=== PATIENT | female | born 1995 | race Caucasian/White ===

== ENCOUNTER 2023-05-01 12:50 | Emergency (ER) | payer OTHER, SELFPAY ==
[2023-05-01 12:55] VITALS: BP 134/86; PULSE 88; RESP 16; TEMP 36.6; O2SAT 100
[2023-05-01 14:54] LABS: Basophils Absolute Auto 0.1 K/mm3 (0.0-0.1); Basophils Percent Auto 0.8 % (0.2-1.2); Eosinophils Absolute Auto 0.3 K/mm3 (0-0.3); Eosinophils Percent Auto 4.5 % (0-4.4); Hematocrit 42.3 % (37.0-47.0); Hemoglobin 14.3 g/dL (12.0-15.0); Immature Granulocyte Absolute 0.01 K/mm3 (0.00-0.031); Immature Granulocyte Percent A 0.2 % (0-0.5); Lymphocytes Absolute Auto 2.01 K/mm3 (0.9-3.2); Lymphocytes Percent Auto 33.3 % (18.3-44.2); Mean Corpuscular HGB Conc 33.8 g/dl (32-36); Mean Corpuscular Hemoglobin 31.5 pg (26-34); Mean Corpuscular Volume 93.2 fl (80-100); Mean Platelet Volume 9.4 fl (7.4-10.4); Monocytes Absolute Auto 0.6 K/mm3 (0.1-0.6); Monocytes Percent Auto 9.5 % (2.6-8.5); Neutrophils Absolute Auto 3.1 K/mm3 (1.3-6.7); Neutrophils Percent Auto 51.7 % (45.5-73.1); Platelet Count Result 269 k/mm3 (150-375); Red Blood Count 4.54 M/mm3 (4.2-5.4); Red Cell Distribution Width 13.2 % (11.5-14.5)
--- NOTE | 2023-05-01 15:02 | ED.GENADULT ---
HPI - General Adult General Chief complaint: Unspecified Stated complaint: need work note Time Seen by Provider: 05/01/23 13:05 Source: patient Mode of arrival: ambulatory Limitations: no limitations History of Present Illness HPI narrative: Patient is a 27-year-old female who presents the ED for work clearance. Patient reports she ate [employer] yesterday afternoon and around 4 PM developed lower abdominal cramping, nausea, vomiting. She went to work last night, but reported having several more episodes of emesis at work. She was sent home from work and was told she needed a note to be cleared to return. She would like to be evaluated for the symptoms though reports today she is feeling much better. Has not had any further nausea, vomiting, abdominal pain today. Denies any sx's currently. She denies any diarrhea, constipation, fevers, rectal bleeding, cough or cold symptoms, vaginal bleeding, urinary symptoms, concern for STDs. Related Data Allergies Allergy/AdvReac Type Severity Reaction Status Date / Time No Known Allergies Allergy Unverified 05/20/16 21:35 Review of Systems Review of Systems: CONSTITUTIONAL: Denies fever, chills, or sweats. ENT: Denies rhinorrhea, congestion, sore throat. CARDIOVASCULAR: Denies chest pain. RESPIRATORY: Denies dyspnea. GASTROINTESTINAL: See HPI. GENITOURINARY: Denies vaginal bleeding, dysuria or hematuria. All systems reviewed & are unremarkable except as noted in HPI and below Exam Narrative: GENERAL: Well appearing, well-nourished, non-toxic, in no acute distress. HEAD: Normocephalic, atraumatic. NECK: Supple. No adenopathy, no masses. RESPIRATORY: Airway patent, respirations nonlabored. Clear to auscultation bilaterally, no rales, rhonchi, wheezing. CARDIOVASCULAR: Regular rate and rhythm without murmurs, rubs, or gallops. Radial pulses 2+ and equal bilaterally. ABDOMINAL: Soft, no tenderness throughout abdomen, nondistended, no hepatosplenomegaly. Normoactive BS. MUSCULOSKELETAL: Moves all extremities. Strength/ROM intact without gross deformities. SKIN: Warm, dry, normal color. No rashes. NEURO: A&O X3. Speech clear. Cranial nerves II-XII grossly intact. Steady gait. No ataxic movements. PSYCHIATRIC: Appropriate mood and affect. Normal interaction. Course Vital Signs Vital signs: Vital Signs Temperature 97.9 F 05/01/23 12:55 Pulse Rate 88 05/01/23 12:55 Respiratory Rate 16 05/01/23 12:55 Blood Pressure 134/86 05/01/23 12:55 Pulse Oximetry 100 05/01/23 12:55 Temperature 97.8 F 05/01/23 15:54 Pulse Rate 76 05/01/23 15:54 Respiratory Rate 16 05/01/23 15:54 Blood Pressure 118/68 05/01/23 15:54 Pulse Oximetry 98 05/01/23 15:54 Medical Decision Making MDM Narrative Medical decision making narrative: Patient presented to ED with report of numerous episodes of nausea and vomiting yesterday, lower abdominal cramping. Symptoms resolved today. Wanting to be evaluated and be cleared to return to work. Vitals stable upon arrival. Afebrile. Patient without any abdominal tenderness on exam. No evidence of surgical abdomen. CBC without leukocytosis. CMP with stable electrolytes. UA consistent with UTI states that esterase, 11-20 WBC, 3+ urine bacteria. Sent for culture. On reevaluation and to discuss laboratory results, patient does admit to having some urinary frequency and malodorous urine over the last couple of days. Will treat for UTI with Keflex. Patient continues to deny any further symptoms. No signs of surgical abdomen on repeat examinations. No indication for further imaging at this time. Patient will be discharged. Discussed likelihood of food poisoning versus GI bug. Advised to follow-up with primary care doctor for further evaluation if needed. Given return precautions. Patient agrees with plan. Discharged in stable condition. Medical Records Medical records reviewed: Yes I reviewed the external patient's medical
[2023-05-01 15:06] LABS: Alanine Aminotransferase 29 U/L (6-35); Albumin Level 4.3 g/dL (3.5-5.1); Alkaline Phosphatase 98 U/L (38-126); Anion Gap 6 mmol/L (8-16); Aspartate Amino Transferase 34 U/L (14-36); Blood Urea Nitrogen 13 mg/dL (7-17); Calcium 9.1 mg/dL (8.4-10.2); Carbon Dioxide 29 mmol/L (22-30); Chloride 101 mmol/L (98-107); Estimated CRCL calculation 91 ml/min; Estimated Glomerular Filt Rate > 60; Glucose 94 mg/dL (65-110); Sodium 136 mmol/L (137-145)
[2023-05-01 15:09] LABS: Appearance Urine Turbid (Clear); Bacteria Urine 3+ /hpf; Bilirubin Urine 1+ (Negative); Blood Urine Negative (Negative); Color Urine Dark Yellow (Yellow); Glucose Urine UA Negative (Negative); Ketones Urine 1+ mg/dL (Negative); Leukocyte Esterase Ur Trace LEU/UL (Negative); Mucus Urine Present /lpf; Need Manual Microscopic Reviewed; Nitrate Urine Negative (Negative); Non Pathogenic Casts 0-2; Protein Urine 1+ mg/dL (Negative); Specific Grav Ur 1.027 (1.001-1.035); Squamous Epithelial Cell Urine Many /hpf (Few)
[2023-05-01 15:12] LABS: Add Urine Microscopic? YES
[2023-05-01] MEDS: CEPHALEXIN 500 MG CAPSULE PO (15:40)
[2023-05-01 15:54] VITALS: BP 118/68; PULSE 76; RESP 16; TEMP 36.6; O2SAT 98
== END 2023-05-01 15:55 | disposition home or self-care (01) ==
PROVIDERS: Emergency Provider Physician Assistant
DX: R11.2 Nausea with vomiting, unspecified (principal); N30.01 Acute cystitis with hematuria
CPT/HCPCS: 36415; 80053; 81001; 81025; 85025; 87086; 87088; 99283; A9270

== ENCOUNTER 2024-01-03 10:25 | Outpatient (RCR) | payer MEDICAID, SELFPAY | END 2024-01-10 11:55 | disposition home or self-care (01) | LOC: ANHLAB 10:25 | PROVIDERS: Visit Provider Obstetrics & Gynecology Gynecology | DX: Z67.91 Unspecified blood type, Rh negative (principal) | CPT/HCPCS: 36415; 85461; 86850; 86900; 86901 ==

== ENCOUNTER 2024-01-10 11:56 | Outpatient (RCR) | payer MEDICAID, SELFPAY ==
[2024-01-11] MEDS: RHO(D) IMMUNE GLOBULIN 300 MCG/2 ML SYRINGE IM (13:37)
== END 2024-04-09 23:59 | disposition home or self-care (01) ==
LOC: ANHLAB 11:56
PROVIDERS: Visit Provider Obstetrics & Gynecology Gynecology
DX: Z29.13 Encounter for prophylactic Rho(D) immune globulin (principal); O36.0190 Maternal care for anti-D [Rh] antibodies, unspecified trimester, not applicable or unspecified; Z3A.00 Weeks of gestation of pregnancy not specified
CPT/HCPCS: 36415; 85461; 86850; 86900; 86901; 90384; 96372; J2790

== ENCOUNTER 2024-02-25 12:22 | Outpatient (CLI) | payer OTHER, SELFPAY ==
--- NOTE | ~2024-02-25 | US_ITS ---
EXAMINATION: US OB follow up DATE: 02/25/2024 13:01 INDICATION: Size less than dates. Third trimester. TECHNIQUE: Real-time ultrasound of the pelvis was performed. COMPARISON: None. FINDINGS: There is a single living fetus in vertex presentation. The placenta is anterior. heart rate is 138 beats per minute (bpm). The amniotic fluid index is 6.3 cm, which is low (5th percentile is 7.5 cm). The following biometric data were obtained: Biparietal diameter (BPD): 8.8 cm; head circumference (HC): 31.9 cm; abdominal circumference (AC): 32 .1 cm; femur length (FL): 7.3 cm. These measurements are concordant. Estimated weight is 2885 g +/- 433 g, which correlates with the 28th percentile when 03/14/24 is used as estimated date of delivery. As single measurements, these parameters are each equal to the following estimated gestational ages: BPD: 35 weeks 2 days. HC: 36 weeks 0 days. AC: 36 weeks 0 days. FL: 37 weeks 2 days. estimated gestational age based solely on measurements from this exam is 36 weeks 1 days +/- 2 weeks 4 days. IMPRESSION: 1. Single living fetus in vertex presentation. 2. Estimated weight is 2885 g +/- 433 g, which correlates with the 28th percentile when 4 is used as estimated date of delivery. 3. Oligohydramnios. Reviewed, dictated and finalized at location A. IMPRESSION: 1. Single living fetus in vertex presentation. 2. Estimated weight is 2885 g +/- 433 g, which correlates with the 28th percentile when 03/14/24 is used as estimated date of delivery. 3. Oligohydramnios.
[2024-02-25 15:50] VITALS: BP 133/76; PULSE 90
== END 2024-02-25 12:23 | disposition home or self-care (01) ==
PROVIDERS: Visit Provider Advanced Practice Midwife
DX: O36.5930 Maternal care for other known or suspected poor fetal growth, third trimester, not applicable or unspecified (principal); Z3A.36 36 weeks gestation of pregnancy
CPT/HCPCS: 59025; 76816

== ENCOUNTER 2024-02-28 09:59 | Outpatient (RCR) | payer OTHER, SELFPAY ==
--- NOTE | 2024-02-25 15:45 | P.PNOB_ITS ---
OB - Triage/Final Diagnosis Visit Information Date of evaluation: 02/25/24 Reason for evaluation: other (Oligohydramnios. ) Comments/Additional reasons for admission: I have assessed the risk for this patient, Ida Louis, and determined that she would benefit from observation care. Evaluation Comments: NST reactive. Good movement. Plan to DC home and have patient push PO flui ds over the weekend. Kick counts BID. Return Wednesday, February 27 am for repeat NST with KRISTY.
--- NOTE | ~2024-02-28 | US_ITS ---
LIMITED OBSTETRIC ULTRASOUND/BIOPHYSICAL PROFILE Ordering provider: Katie Matute CNM History: . KRISTY for Oligo . Comparison: February 25, 2024 FINDINGS/impression: Distance from cervix: OOR. PRESENTATION: Vertex. PLACENTAL LOCATION: Anterior No previa. HEART RATE: 143 bpm (normal is between 110 to 160 bpm). AMNIOTIC FLUID INDEX: Low measuring 2.99 cm. Suggestive of oligohydramnios (KRISTY between 5-25 cm in fr om 20-35 weeks gestation is considered normal). Reviewed, dictated and finalized at location A.
[2024-02-28 12:30] VITALS: BP 126/86; PULSE 86
== END 2024-03-06 08:13 | disposition home or self-care (01) ==
LOC: ANHOBOP 09:59
PROVIDERS: Visit Provider Advanced Practice Midwife
DX: O41.03X0 Oligohydramnios, third trimester, not applicable or unspecified (principal); Z3A.37 37 weeks gestation of pregnancy
CPT/HCPCS: 59025; 76815

== ENCOUNTER 2024-02-28 12:30 | Inpatient (IN) | payer OTHER, SELFPAY ==
--- NOTE | 2024-02-28 13:05 | WPDOBADMIT ---
Obstetrics - Admit Note Admission Note: record reviewed. No pertinent additions to the history and/or any subsequent changes in the physical findings that are not consistent with the expected course of the were found. Additions to the history and/or subsequent changes in the physical findings follow. Oligohydramnios.
--- NOTE | 2024-02-28 13:10 | PM.OBPNLAB ---
Pain Control Date/time seen: 02/28/24 13:10 Pain control: tolerating well Comments: CNM to bedside. Discussed plan of care for cervical ripening.
[2024-02-28 14:00] VITALS: TEMP 36.6
[2024-02-28 14:35] VITALS: BMI 31.4
[2024-02-28 14:36] LABS: Basophils Absolute Auto 0.1 K/mm3 (0.0-0.1); Basophils Percent Auto 0.4 % (0.2-1.2); Eosinophils Absolute Auto 0.1 K/mm3 (0-0.3); Eosinophils Percent Auto 0.8 % (0-4.4); Hematocrit 35.4 % (37.0-47.0); Hemoglobin 11.9 g/dL (12.0-15.0); Immature Granulocyte Absolute 0.11 K/mm3 (0.00-0.031); Immature Granulocyte Percent A 0.8 % (0-0.5); Lymphocytes Absolute Auto 1.91 K/mm3 (0.9-3.2); Lymphocytes Percent Auto 14.6 % (18.3-44.2); Mean Corpuscular HGB Conc 33.6 g/dl (32-36); Mean Corpuscular Volume 86.3 fl (80-100); Mean Platelet Volume 9.8 fl (7.4-10.4); Monocytes Absolute Auto 0.5 K/mm3 (0.1-0.6); Monocytes Percent Auto 3.9 % (2.6-8.5); Neutrophils Absolute Auto 10.4 K/mm3 (1.3-6.7); Neutrophils Percent Auto 79.5 % (45.5-73.1); Platelet Count Result 291 k/mm3 (150-375); Red Cell Distribution Width 13.9 % (11.5-14.5); White Blood Count 13.1 K/mm3 (4.5-10.0)
[2024-02-28 15:28] LABS: HIV 1/2 Ab P24 Ag Result Negative (Negative)
[2024-02-28] MEDS: miSOPROStol 25 MCG TABLET 50 MCG SUBLINGUAL ×2 (18:22→21:36)
--- NOTE | 2024-02-28 19:18 | PM.OBPNLAB ---
Pain Control Date/time seen: 02/28/24 19:18 Pain control: tolerating well Comments: Feeling occasional uterine cramping Contractions Monitor mode: External Contraction intensity: Mild Status status: Category ll Comments: Cat 1 except for recent prolonged decel Assessment and Plan Comments: Recent prolonged FHT deceleration noted after pt lying on her back. Repositioned by RN and resolved spontaneously.
[2024-02-28] MEDS: hydrOXYzine HCL 25 MG TABLET PO (22:57)
[2024-02-29] VITALS (268 sets, daily range): BP systolic 93–164; BP diastolic 38–130; PULSE 66–145; TEMP 36.5–38.2; O2SAT 87–100
[2024-02-29] MEDS: miSOPROStol 25 MCG TABLET 50 MCG SUBLINGUAL (01:33)
--- NOTE | 2024-02-29 07:36 | PM.OBPNLAB ---
Pain Control Date/time seen: 02/29/24 07:35 Pain control: tolerating well Pelvic Exam Dilation (cm): 1 Effacement (%): 25 station: -3 Amniotic membrane status: Intact Comments: head ballotable Contractions Monitor mode: External Contraction pattern: Irregular Contraction intensity: Mild Status status: Category l Assessment and Plan Assessment: induction ongoing Comments: Discussed plan of care and option for cervical ripening balloon. Discussed risks/benefits, pt agreeable. Cook catheter inserted through internal os. Uterine balloon inflated with 80 ml sterile saline. Vaginal balloon inflated with 80ml sterile saline. Pt tolerated procedure well. Plan low dose pitocin.
--- NOTE | 2024-02-29 07:41 | WPDANESEPP ---
Anes - Eval Pre Procedure Procedure: labor epidural Date/Time: 02/29/24 07:41 Surgeon: nela Preop Diagnosis: pain during labor Pre Op Diagnosis: Induction of Labor Patient Data Age: 28 Gender: F Height: 1.63 m Weight: 83 kg Last Vital Signs Temp 36.8 C 02/29/24 01:00 Pulse 77 02/29/24 07:31 BP 127/75 02/29/24 07:31 O2 Del Method Room Air 02/28/24 14:30 Allergies Allergy/AdvReac Type Severity Reaction Status Date / Time No Known Allergies Allergy Unverified 05/20/16 21:35 Home Medications Medication Instructions Recorded Confirmed Type aspirin 81 mg tablet 81 mg PO DAILY 02/21/24 02/21/24 History cholecalciferol (vitamin D3) 1,250 1,250 mcg PO WEEKLY 02/21/24 02/21/24 History mcg (50,000 unit) tablet prenat.vits,delano,hsa-pzfw-lggni 1 tablet 02/21/24 History Laboratory Tests 02/28/24 13:43 WBC 13.1 H K/mm3 (4.5-10.0) RBC 4.10 L M/mm3 (4.2-5.4) Hgb 11.9 L g/dL (12.0-15.0) Hct 35.4 L % (37.0-47.0) MCV 86.3 fl (80-100) MCH 29.0 pg (26-34) MCHC 33.6 g/dl (32-36) RDW 13.9 % (11.5-14.5) Plt Count 291 k/mm3 (150-375) MPV 9.8 fl (7.4-10.4) Immature Gran % (Auto) 0.8 H % (0-0.5) Neut % (Auto) 79.5 H % (45.5-73.1) Lymph % (Auto) 14.6 L % (18.3-44.2) Bennett % (Auto) 3.9 % (2.6-8.5) Eos % (Auto) 0.8 % (0-4.4) Baso % (Auto) 0.4 % (0.2-1.2) Lymph # (Auto) 1.91 K/mm3 (0.9-3.2) Bennett # (Auto) 0.5 K/mm3 (0.1-0.6) Eos # (Auto) 0.1 K/mm3 (0-0.3) Baso # (Auto) 0.1 K/mm3 (0.0-0.1) Abs Immat Gran (auto) 0.11 H K/mm3 (0.00-0.031) Absolute Neuts (auto) 10.4 H K/mm3 (1.3-6.7) Absolute Nucleated RBC 0.000 K/mm3 (0.0-0.012) Nucleated RBC % 0.0 % (0.0-0.2) RPR Pending HIV 1&2 Ab/P24 Ag 4thGn Negative (Negative) Blood Type A Negative Antibody Screen Positive Antibody Identification Passive Due to RH Imm Glob Antigen Identification TNP NEGRO, IgG Interpret Neg NEGRO, Poly Interpret TNP NEGRO, Complement Interp Negative Patient hx anesthesia problems: none Family hx anesthesia problems: none Results Review: All pre-operative results and documents have been reviewed as part of the pre-operative evaluation. [facility] Past Medical History Medical History (Updated 02/29/24 @ 07:42 by Elaine Joyce CRNA) IUP (intrauterine ), incidental Migraines, neuralgic Obesity (BMI 30-39.9) Family History Family History (Updated 02/21/24 @ 14:23 by Cheyenne Ruffin RN) Mother Pre-eclampsia Breast cancer Father Hypertension Social History Social History Smoking status: Never smoker Second hand tobacco smoke exposure: No Substance use: never Last use: daily Do You Feel Safe in your Home?: Yes Lack of Transportation: No Lack of Food: Never True Current Housing: I Have Housing Concerned About Future Housing: No Difficulty Paying Gas/Electric Bills: No Difficulty Paying for Meds: No Currently Unemployed: No Education: High School Diploma/GED Difficulty w/ Childcare or Family Care: No Spiritual care concerns: No Exam Day of Procedure 02/29/24 07:41
[2024-02-29] MEDS: fentaNYL CITRATE INJ (*CRX) 100 MCG/2 ML VIAL 50 MCG IV PUSH (07:57)
[2024-02-29] MEDS: OXYTOCIN 30 UNITS/NS 500 ML 30 UNITS/500 ML BAG IV CONT (08:35)
[2024-02-29] MEDS: LACTATED RINGERS 1,000 ML 125 ML IV CONT ×2 (08:36→10:19)
[2024-02-29] MEDS: fentaNYL CITRATE INJ (*CRX) 100 MCG/2 ML VIAL IV PUSH (09:06)
[2024-02-29 11:42] LABS: Rapid Plasma Reagin Non-Reactive (NonReactive)
[2024-02-29] MEDS: DEXTROSE 5%/LACTATED RINGERS 1,000 ML 100 ML IV CONT (15:44)
--- NOTE | 2024-02-29 16:02 | PM.OBPNLAB ---
Pain Control Date/time seen: 02/29/24 16:02 Pain control: epidural Comments: tracing reviewed. Pelvic Exam Amniotic membrane status: Intact Contractions Monitor mode: External Contraction pattern: Irregular Contraction intensity: Mild Status status: Category ll Assessment and Plan Plan: continuous present management Comments: RN called CNM d/t occasional late decelerations. Usually resolve with position change. Reviewed tracing from office. Cat2. Reassured by moderate variability and accelerations. Discussed with RN to call CNM for any further concerns. Plan to assess cook catheter and consider ROM.
--- NOTE | 2024-02-29 17:27 | PM.OBPNLAB ---
Pain Control Date/time seen: 02/29/24 17:27 Pain control: tolerating well and epidural Pelvic Exam Dilation (cm): 5 Effacement (%): 50 station: -3 Amniotic membrane status: Intact Comments: head well applied to cervix. Contractions Monitor mode: External Contraction pattern: Irregular Contraction intensity: Mild Status status: Category ll Assessment and Plan Assessment: induction ongoing Comments: CNM to bedside. Gentle traction applied to cook catheter and catheter expelled. SVE 02/11/-3. Discussed recommendation for amniotomy and pt agreeable. Amniotomy performed and there was a moderate return of clear fluid. Bloody show WNL. IUPC inserted through internal cervical os. Initally there was return of clear fluid but this became hayden blood. New IUPC inserted in the 7 o'clock position and was filled with clear amniotic fluid. 1st IUPC removed. Plan to start and increase pitocin as needed to achieve adequate contraction pattern. Discussed possibility of amnioinfusion if needed. Pt and S.O. agree with plan of care.
[2024-03-01] VITALS (232 sets, daily range): BP systolic 82–166; BP diastolic 36–153; PULSE 55–157; RESP 12–23; TEMP 36.4–36.8; O2SAT 86–100
[2024-03-01] MEDS: SODIUM CHLORIDE 0.9% IV 300 ML 600 ML I-UTERINE (01:09)
[2024-03-01] MEDS: SODIUM CHLORIDE 0.9% IV 1,000 ML 150 ML I-UTERINE (01:40)
[2024-03-01] MEDS: LORATADINE 10 MG TABLET PO (07:16)
[2024-03-01] MEDS: LACTATED RINGERS 1,000 ML 125 ML IV CONT (10:23)
[2024-03-01] MEDS: AMPICILLIN 2 GM/NS 100 ML 2 GM/100 ML BAG IVPB (11:10)
[2024-03-01] MEDS: ACETAMINOPHEN 500 MG TABLET 1000 MG PO (11:47)
--- NOTE | 2024-03-01 11:51 | WPDHPUPDATE1 ---
History and Physical Update Update Date/Time: 03/01/24 11:51 History and Physical has been reviewed, including an updated exam of the patient. There are NO changes in the patient's condition. Risks, benefits, and alternatives have been discussed and questions answered. Patient agrees to proceed with procedure. Patient has unchanged cervix since early this seen. She is prolonged rupture membranes and antibiotics. She is unable tolerate increase contractions thus is offered section risks were all questions answered. She asked to proceed
[2024-03-01] MEDS: ONDANSETRON INJ 4 MG/2 ML VIAL IV PUSH (11:55)
[2024-03-01] MEDS: FAMOTIDINE 20 MG/2 ML VIAL IV PUSH (11:56)
--- NOTE | 2024-03-01 11:56 | PM.OBPNLAB ---
Pain Control Date/time seen: 03/01/24 0710 Pain control: tolerating well and epidural Assessment and Plan Comments: Reviewed tracing. Discussed plan of care with pt and her S.O. Unable to increase pitocin to achieve adequate contraction pattern due to FHT decelerations. Discussed options. Desires to proceed with IOL at this time. Discussed potential for delivery. Discussed risks, benefits, and expectations. She is agreeable if no further cervical change or intolerance. Addendum: At 0116 this am, CNM reviewed tracing from home after discussing plan of care with RN. Some periods of Cat 2 tracing but resolve to Cat 1 with accelerations with position changes.
--- NOTE | 2024-03-01 12:01 | PM.OBPNLAB ---
Pain Control Date/time seen: 03/01/24 3092 Discussed plan of care with Dr. Rhonda Wallis as cervical exam is unchanged. Starting Ampicillin for prolonged ROM. Discussed plan of care with RN. Ordered Azithromycin 500mg to be given in event of delivery. Pelvic Exam Dilation (cm): 5 Effacement (%): 50 station: -3 Amniotic membrane status: Intact Contractions Monitor mode: External Contraction pattern: Irregular Contraction intensity: Mild Status status: Category ll
[2024-03-01] MEDS: ceFAZolin 2 GM/D5W 50 ML 2 GM/50 ML BAG IVPB (12:02)
[2024-03-01] MEDS: AZITHROMYCIN 500 MG/NS 250 ML 500 MG/250 ML BAG 250 MG IVPB (12:02)
--- NOTE | 2024-03-01 12:04 | PM.IMHP ---
H&P: HPI History of Present Illness Date/Time: 03/01/24 0710 Chief Complaint: Induction of labor for oligohydramnios Narrative: 28 y.o. G1 at 38 weeks gestation. IOL 2/2 oligohydramnios. S/P cytotec, cook catheter, and AROM. Review of Systems Review of Systems: All systems reviewed & are unremarkable except as noted in HPI and below PMFSH Past Medical History Medical History (Updated 03/01/24 @ 12:07 by Katie Matute CNM) IUP (intrauterine ), incidental Migraines, neuralgic Obesity (BMI 30-39.9) Family History Family History (Updated 02/21/24 @ 14:23 by Cheyenne Ruffin RN) Mother Pre-eclampsia Breast cancer Father Hypertension Social History Social History Smoking status: Never smoker Second hand tobacco smoke exposure: No Substance use: never Last use: daily Do You Feel Safe in your Home?: Yes Lack of Transportation: No Lack of Food: Never True Current Housing: I Have Housing Concerned About Future Housing: No Difficulty Paying Gas/Electric Bills: No Difficulty Paying for Meds: No Currently Unemployed: No Education: High School Diploma/GED Difficulty w/ Childcare or Family Care: No Spiritual care concerns: No Meds Home Medications and Allergies Home Medications Medication Instructions Recorded Confirmed Type aspirin 81 mg tablet 81 mg PO DAILY 02/21/24 02/21/24 History cholecalciferol (vitamin D3) 1,250 1,250 mcg PO WEEKLY 02/21/24 02/21/24 History mcg (50,000 unit) tablet prenat.vits,delano,uun-bifg-rboow 1 tablet 02/21/24 History Allergies Allergy/AdvReac Type Severity Reaction Status Date / Time No Known Allergies Allergy Unverified 05/20/16 21:35 Vital Signs Vital Signs - 24 hr 02/29/24 12:06 02/29/24 12:11 02/29/24 12:16 Temperature Pulse Rate 83 Blood Pressure 116/70 Pulse Oximetry 99 100 100 02/29/24 12:21 02/29/24 12:26 02/29/24 12:31 Temperature Pulse Rate 85 Blood Pressure 123/74 Pulse Oximetry 100 100 100 02/29/24 12:36 02/29/24 12:41 02/29/24 12:46 Temperature Pulse Rate 89 Blood Pressure 125/73 Pulse Oximetry 100 100 100 02/29/24 12:51 02/29/24 12:56 02/29/24 13:01 Temperature Pulse Rate 89 Blood Pressure 110/53 L Pulse Oximetry 100 100 100 02/29/24 13:06 02/29/24 13:11 02/29/24 13:16 Temperature Pulse Rate 99 Blood Pressure 106/65 Pulse Oximetry 100 100 100 02/29/24 13:21 02/29/24 13:26 02/29/24 13:30 Temperature Pulse Rate 86 Blood Pressure 110/52 L Pulse Oximetry 100 100 02/29/24 13:31 02/29/24 13:36 02/29/24 13:41 Temperature Pulse Rate Blood Pressure Pulse Oximetry 100 100 100 02/29/24 13:46 02/29/24 13:51 02/29/24 13:56 Temperature Pulse Rate 86 Blood Pressure 103/52 L Pulse Oximetry 100 100 100 02/29/24 14:00 02/29/24 14:01 02/29/24 14:06 Temperature Pulse Rate 87 Blood Pressure 119/73 Pulse Oximetry 100 100 02/29/24 14:11 02/29/24 14:16 02/29/24 14:21 Temperature Pulse Rate 110 H Blood Pressure 96/50 L Pulse Oximetry 100 100 100 02/29/24 14:26 02/29/24 14:30 02/29/24 14:31 Temperature Pulse Rate 92 Blood Pressure 95/53 L Pulse Oximetry 100 100 02/29/24 14:36 02/29/24 14:41 02/29/24 14:45 Temperature Pulse Rate 82 Blood Pressure 121/74 Pulse Oximetry 100 100 02/29/24 14:46 02/29/24 14:51 02/29/24 14:56 Temperature Pulse Rate Blood Pressure Pulse Oximetry 100 100 100 02/29/24 15:01 02/29/24 15:00 02/29/24 15:06 Temperature 99 F Pulse Rate 84 Blood Pressure 120/69 Pulse Oximetry 100 100 02/29/24 15:11 02/29/24 15:12 02/29/24 15:16 Temperature Pulse Rate 84 Blood Pressure 102/54 L Pulse Oximetry 100 100 02/29/24 15:17 02/29/24 15:22 02/29/24 15:24 Temperature Pulse Rate Blood Pressure Pulse Oximetry 100 100 100 02/29/24 15:29 02/29/24 15:31 02/29/24 15:34 T
--- NOTE | 2024-03-01 12:41 | P.PCNOB_ITS ---
OB - Delivery Note Procedure Delivery date: 03/01/24 Pre-op diagnosis: Oligohydramnios Post-op Diagnosis: Same Induction method: AROM Delivery augmentation: Pitocin Delivery monitor: External FHT and Internal Uterine Procedure Performed: Primary Surgeon: Vishal Wallis MD Anesthesia type: Epidural Description of Procedure/Findings: Patient was admitted for induction of labor secondary to oligohydramnios. Despite intrauterine pressure catheter amnio infusion the baby did not tolerate the labor and got to 6cm. After 10 for Percocet she was taken back prepped draped normal sterile fashion placed in supine position. Under excellent epidural anesthesia the abdomen was entered in Pfannenstiel fashion wrist layers of fascia. Fascia incised midline. The rest bilaterally. Underlying muscles sharply dissected. Parietal peritoneum a by Rissa clamps and by sharp dissection carried superiorly inferiorly dome bladder. Bladder blade placed. Bladder flap returned made. Bladder blade returned. A low-transverse incision made the head delivered the ANNI position. Anterior posterior shoulder delivered spontaneously. Cord clamped to cut passed off the table flexor cry. Placenta delivered intact manually. Uterus delivered a from the abdomen wrapped in a moist towel. After assuring no membranes or debris remained in the uterus, the uterus was closed with continuous running locking 0 Vicryl from lateral edge to large. Was followed by 2nd imbricating running locking 0 Vicryl from lateral edge to lateral edge. Hemostasis was assured. Ovaries and tubes appeared within normal limits and uterus returned the abdomen. Incision inspected on the uterus 1 last time noted be hemostatic. Laps removed and accounted for and the fascia closed with continuous running 0 Vicryl from lateral edge to lateral edge. Irrigation subcutaneous layer the skin closed with 4 Monocryl and glue blood loss was 255. All sponge, needle, instrument counts were correct. There were no immediate complications Specimen: No Estimated Blood Loss: 255 Urine Output: 2,100 Drains: No Packing: No Pathology: None sent Complications: No immediate complications Condition: Stable [place] Baby Date of : 03/01/24 Time of : 12:30 Weeks of gestation at delivery: 39 Infant gender: Male Weight (pounds): 6 Weight (ounces): 7 presentation: vertex position: Right Occiput Anterior Placenta delivery description: Manual Removal Cord Vessel Description: 3 Vessels score one minute: 8 score five minutes: 9
--- NOTE | 2024-03-01 12:44 | PM.DS ---
DS: Admitting Diagnosis Discharge Date 03/04/2024 Admitting Diagnosis term oligohydramnios DS: Discharge Diagnosis Discharge Diagnosis (1) Oligohydramnios in figueroa in third trimester: Code(s): O41.03X0 - Oligohydramnios, third trimester, not applicable or unspecified Status: Acute (2) IUP (intrauterine ), incidental: Code(s): Z33.1 - state, incidental Status: Acute DS: Summary Hospital Course Reason for hospitalization: patient was admitted for induction of labor at term secondary to oligohydramnios and failed and resulted low-transverse section 03/01/2024. Hospital Course: Patient's hospital course was unremarkable. She remained afebrile. She was up, voiding without difficulty, eating regular diet, ambulating, bottle feeding, and generally without complaints. Time Spent with Patient Time attestation: Total time spent providing and/or coordinating discharge services: Exam Const: General: cooperative, healthy appearing and comfortable Nutritional Appearance: average body habitus Orientation/consciousness: oriented to person, oriented to place and oriented to time Resp: Effort & Inspection: normal respiratory effort Cardio: Rate: regular rate Rhythm: regular rhythm Heart sounds: S1 normal heart sound present and S2 normal heart sound present GI: Inspection: normal to inspection and incision ( Wound is clean dry and intact) Discharge Plan Discharge Attending physician on discharge: Cassandra Wu Discharging Clinician: Vishal Osorio Patient Disposition: Home, Self-Care Activity: may shower and pelvic rest Diet: heart healthy Wound Care Instructions: follow printed instructions Patient Instructions: Antibiotic Form Stand Alone Forms: General Discharge Information Follow-up/Referrals: Cassandra Wu MD [Physician] - Discharge Medications: New hydrocodone-acetaminophen 5-325 mg tablet 1 tablet PO Q4H PRN (Reason: pain) Qty: 30 0RF Continued Adult Low Dose Aspirin 81 mg Tablet 81 mg PO DAILY #2 Tablet 1 tablet cholecalciferol (vitamin D3) 1,250 mcg (50,000 unit) Tablet 1,250 mcg PO WEEKLY Date of admission: 02/28/24 12:30 Primary Care Provider: UNKNOWN,DOCTOR Admitting Provider: Cassandra Wu Attending physician on admission: Cassandra Wu Condition: Stable
--- NOTE | 2024-03-01 12:59 | PC.NURSE ---
heart tones obtained in OR prior to prepping patient. [id number] at 1205. Proceeded to prep in a routine fashion.
[2024-03-01] MEDS: OXYTOCIN 30 UNITS/NS 500 ML 30 UNITS/500 ML BAG 125 UNITS IV CONT (13:42)
--- NOTE | 2024-03-01 15:23 | OBPPTRN ---
Patient transferred to post room #291 via stretcher. Support person present. Oriented to unit, room, information board, rooming in, admission packet and security measures. Patient verbalizes understanding.
[2024-03-01] MEDS: HYDROcodone/acetaminophen (*CRX) 10-325 MG TABLET 1 TAB PO (15:55)
[2024-03-01] MEDS: KETOROLAC 15 MG/ML VIAL (*BKC) IV PUSH ×2 (15:56→22:00)
[2024-03-01] MEDS: LIDOCAINE 5% PATCH 1 PATCH TRANSDERM (15:56)
[2024-03-01] MEDS: SIMETHICONE 80 MG TAB.CHEW PO (17:58)
[2024-03-01] MEDS: DEXTROSE 5%/0.45% SOD CHL 1,000 ML 125 ML IV CONT (17:58)
[2024-03-01] MEDS: DOCUSATE SODIUM 100 MG CAPSULE PO (17:58)
[2024-03-01] MEDS: ACETAMINOPHEN 325 MG TABLET 650 MG PO (22:00)
[2024-03-02] VITALS: BP 118/74; PULSE 92; RESP 17; TEMP 37.1; O2SAT 97
[2024-03-02] MEDS: HYDROcodone/acetaminophen (*CRX) 10-325 MG TABLET 1 TAB PO (02:23)
[2024-03-02] MEDS: KETOROLAC 15 MG/ML VIAL (*BKC) IV PUSH (03:57)
[2024-03-02] MEDS: ACETAMINOPHEN 325 MG TABLET 650 MG PO ×4 (03:58→21:56)
[2024-03-02 05:35] LABS: Basophils Absolute Auto 0.1 K/mm3 (0.0-0.1); Basophils Percent Auto 0.4 % (0.2-1.2); Eosinophils Absolute Auto 0.1 K/mm3 (0-0.3); Eosinophils Percent Auto 0.8 % (0-4.4); Hematocrit 30.6 % (37.0-47.0); Immature Granulocyte Absolute 0.09 K/mm3 (0.00-0.031); Immature Granulocyte Percent A 0.5 % (0-0.5); Lymphocytes Absolute Auto 2.05 K/mm3 (0.9-3.2); Lymphocytes Percent Auto 12.4 % (18.3-44.2); Mean Corpuscular HGB Conc 32.7 g/dl (32-36); Mean Corpuscular Hemoglobin 28.7 pg (26-34); Mean Corpuscular Volume 87.7 fl (80-100); Mean Platelet Volume 9.9 fl (7.4-10.4); Monocytes Absolute Auto 0.9 K/mm3 (0.1-0.6); Monocytes Percent Auto 5.2 % (2.6-8.5); Neutrophils Absolute Auto 13.4 K/mm3 (1.3-6.7); Neutrophils Percent Auto 80.7 % (45.5-73.1); Platelet Count Result 236 k/mm3 (150-375); Red Blood Count 3.49 M/mm3 (4.2-5.4); White Blood Count 16.5 K/mm3 (4.5-10.0)
[2024-03-02] MEDS: DOCUSATE SODIUM 100 MG CAPSULE PO ×2 (06:55→16:31)
[2024-03-02] MEDS: SIMETHICONE 80 MG TAB.CHEW PO ×3 (06:56→16:30)
--- NOTE | 2024-03-02 06:58 | PM.OBPNVD ---
OB - PN: Subj Subjective Date/time seen: 03/02/24 06:58 Patient comments: no complaints and pain well controlled baby status: doing well OB - PN: Obj Data Labs 03/02/24 04:05 Labs: Laboratory Results - last 24 hr 03/02/24 04:05 WBC 16.5 H RBC 3.49 L Hgb 10.0 L Hct 30.6 L MCV 87.7 MCH 28.7 MCHC 32.7 RDW 14.0 Plt Count 236 MPV 9.9 Immature Gran % (Auto) 0.5 Neut % (Auto) 80.7 H Lymph % (Auto) 12.4 L Valley % (Auto) 5.2 Eos % (Auto) 0.8 Baso % (Auto) 0.4 Lymph # (Auto) 2.05 Valley # (Auto) 0.9 H Eos # (Auto) 0.1 Baso # (Auto) 0.1 Abs Immat Gran (auto) 0.09 H Absolute Neuts (auto) 13.4 H Absolute Nucleated RBC 0.000 Nucleated RBC % 0.0 Blood Type A Negative OB - PN A/P Plan day: 1 Plan: routine care Time Spent With Patient Time: Total time spent is greater than 50% in coordination of care (as documented) at patient's floor/unit and/or counseling patient: Time with patient: less than 15 minutes Exam Const: General: cooperative, healthy appearing and comfortable Orientation/consciousness: oriented to person, oriented to place and oriented to time Resp: Effort & Inspection: normal respiratory effort Cardio: Rate: regular rate Rhythm: regular rhythm Heart sounds: S1 normal heart sound present and S2 normal heart sound present GI: Inspection: normal to inspection and incision (cdi)
[2024-03-02 07:40] VITALS: BP 116/70; PULSE 82; RESP 16; TEMP 36.2; O2SAT 96
[2024-03-02] MEDS: HYDROcodone/acetaminophen (*CRX) 5-325 MG TABLET 1 TAB PO (07:51)
--- NOTE | 2024-03-02 09:00 | WPDANLDNPN2 ---
Anes-Prog Note L&D-Neuraxial Date/Time: 03/02/24 09:00 Patient feedback: Patient satisfied with post-operative pain management.
--- NOTE | 2024-03-02 09:01 | WPDANLDPN2 ---
Anes-Prog Note L&D Date/Time: 03/02/24 09:01 Neuro status: Neuro function grossly intact. Cardiovascular status: normal Respiratory status: normal Airway patency: baseline Mental status: baseline Post-Op hydration status: normal Vital Signs: Last Vital Signs Temp 36.2 C L 03/02/24 07:40 Pulse 82 03/02/24 07:40 Resp 16 03/02/24 07:40 BP 116/70 03/02/24 07:40 Pulse Ox 96 03/02/24 07:40 O2 Del Method Room Air 03/01/24 20:00 Pain score (VAS): 0 I/O: Intake & Output 03/01/24 03/02/24 03/02/24 23:59 07:59 15:59 Intake Total 240 1700 Output Total 2200 Balance 240 -500 Post-procedural complaints: none Patient feedback: Patient satisfied with anesthetic care.
[2024-03-02] MEDS: IBUPROFEN 600 MG TABLET PO ×3 (10:35→21:56)
[2024-03-02] MEDS: RHO(D) IMMUNE GLOBULIN 300 MCG/2 ML SYRINGE IM (11:43)
--- NOTE | 2024-03-02 16:08 | PCCCNOTE ---
Recvd referral in regards to OB Substance Abuse Screening. Met with pt., FOB Trevin, and pt's friend at bedside. Pt. reports using THC at the beginning of for migraines and appetite. Pt. reports hasn't used THC in a few months. No drug screens being completed on pt. or baby. Pt. reports she, baby, and Trevin will be living at [address] [place] [address]. Pt. reports has support from her sister, her friend, and the baby's two grandmothers. Pt. reports having all necessary baby supplies. Pt. is already established with [facility]. Pt. denies any prior DCFS involvement. resources provided to pt. No further needs indicated.
[2024-03-02] MEDS: LIDOCAINE 5% PATCH 1 PATCH TRANSDERM (16:30)
[2024-03-02 19:10] VITALS: BP 115/76; PULSE 82; RESP 18; TEMP 36.8; O2SAT 97
[2024-03-03] MEDS: ACETAMINOPHEN 325 MG TABLET 650 MG PO ×4 (04:49→22:19)
[2024-03-03] MEDS: IBUPROFEN 600 MG TABLET PO ×4 (04:49→22:19)
--- NOTE | 2024-03-03 06:59 | PM.OBPNVD ---
OB - PN: Subj Subjective Date/time seen: 03/03/24 06:59 Patient comments: no complaints and pain well controlled baby status: doing well OB - PN: Obj Data Labs 03/02/24 04:05 Labs: Laboratory Results - last 24 hr 03/02/24 04:05 Blood Type A Negative Antibody Screen Positive Antibody Identification TNP Antigen Identification TNP NEGRO, IgG Interpret Negative NEGRO, Poly Interpret Not Performed NEGRO, Complement Interp Negative Screen Negative Baby's Blood Type O pos Baby's NEGRO Positive Doses of RhIg Required 1 OB - PN A/P Plan day: 2 Plan: routine care Time Spent With Patient Time: Total time spent is greater than 50% in coordination of care (as documented) at patient's floor/unit and/or counseling patient: Time with patient: less than 15 minutes Exam Const: General: cooperative, healthy appearing and comfortable Nutritional Appearance: average body habitus Orientation/consciousness: oriented to person, oriented to place and oriented to time HENMT: Head: normal to inspection Resp: Effort & Inspection: normal respiratory effort Cardio: Rate: regular rate Rhythm: regular rhythm Heart sounds: S1 normal heart sound present and S2 normal heart sound present GI: Inspection: normal to inspection and incision (Wound is clean dry and intact)
[2024-03-03] MEDS: DOCUSATE SODIUM 100 MG CAPSULE PO ×2 (07:37→16:28)
[2024-03-03] MEDS: SIMETHICONE 80 MG TAB.CHEW PO ×2 (07:38→16:28)
[2024-03-03 08:40] VITALS: BP 116/76; PULSE 66; RESP 16; TEMP 36.9; O2SAT 100
[2024-03-03] MEDS: LIDOCAINE 5% PATCH 1 PATCH TRANSDERM (16:29)
[2024-03-03 18:42] VITALS: BP 128/89; PULSE 84; RESP 12; TEMP 37; O2SAT 99
[2024-03-04] MEDS: IBUPROFEN 600 MG TABLET PO (04:27)
[2024-03-04] MEDS: ACETAMINOPHEN 325 MG TABLET 650 MG PO (04:27)
--- NOTE | 2024-03-04 05:43 | PM.OBPNVD ---
OB - PN: Subj Subjective Date/time seen: 03/04/24 05:43 Patient comments: no complaints and pain well controlled baby status: doing well and nursing well OB - PN: Obj Data Labs 03/02/24 04:05 OB - PN A/P Plan day: 3 Plan: routine care, discharge home and follow up 6 weeks (4) Time Spent With Patient Time: Total time spent is greater than 50% in coordination of care (as documented) at patient's floor/unit and/or counseling patient: Time with patient: less than 15 minutes Exam Const: General: cooperative, healthy appearing and comfortable Nutritional Appearance: average body habitus Orientation/consciousness: oriented to person, oriented to place and oriented to time Resp: Effort & Inspection: normal respiratory effort Cardio: Rate: regular rate Rhythm: regular rhythm Heart sounds: S1 normal heart sound present and S2 normal heart sound present GI: Inspection: normal to inspection
[2024-03-04 07:05] VITALS: BP 125/86; PULSE 80; RESP 16; TEMP 36.4
[2024-03-04] MEDS: SIMETHICONE 80 MG TAB.CHEW PO (07:07)
[2024-03-04] MEDS: DOCUSATE SODIUM 100 MG CAPSULE PO (07:07)
[2024-03-06 09:26] VITALS: BP 123/73; PULSE 83; RESP 18; TEMP 36.6; O2SAT 100
== END 2024-03-04 09:26 | disposition home or self-care (01) | DRG 540 ==
LOC: ANHLDR 03-01 15:28 → ANHOB2 03-01 15:35
PROVIDERS: Advanced Practice Midwife; Obstetrics & Gynecology; Admitting Provider Obstetrics & Gynecology Gynecology; Visit Provider Obstetrics & Gynecology Gynecology
PROC: 10D00Z1 Extraction of Products of Conception, Low, Open Approach (ICD-10-PCS; CPT 59514; principal; 2024-03-01 11:50)
DX: O41.03X0 Oligohydramnios, third trimester, not applicable or unspecified (principal); Z37.0 Single live birth; Z3A.38 38 weeks gestation of pregnancy; O36.8330 Maternal care for abnormalities of the fetal heart rate or rhythm, third trimester, not applicable or unspecified; O42.02 Full-term premature rupture of membranes, onset of labor within 24 hours of rupture
CPT/HCPCS: 36415; 59025; 76815; 84112; 85025; 85461; 86592; 86703; 86850; 86880; 86900; 86901; 86902; 90384; A9270; G0432; J0290; J0456; J0690; J1885; J2274; J2405; J2590; J2790; J2795; J3010; J7030; J7120; J7121